=== PATIENT | male | born 1975 | race Caucasian/White ===

== ENCOUNTER 2018-01-15 17:01 | Emergency (ER) | payer OTHER ==
[~2018-01-15] VITALS: Ht 170.2 cm; Wt 90.7 kg
--- NOTE | ~2018-01-15 | EKG ---
[address] [place] [address] ELECTROCARDIOGRAM REPORT Name: ARMOND BUTCHER Room #: DEP Kasey#: [id number] Admission: 01/15/18 Attend Phys: Discharge: 01/15/18 Date of : 71 Report #: [id number] THIS REPORT FOR: //name// [facility] ED Test Date: 2018-01-15 Test Time: 17:09:09 Pat Name: ARMOND BUTCHER Department: Room: Gender: Inspector Floor: [place] : 1975 Requested By: Denise Camara Order Number: [id number] MD: Bertin Bravo Measurements Intervals [place] Rate: 97 P: 51 MT: 168 QRS: 7 QRSD: 94 T: 22 QT: 347 QTc: 441 Interpretive Statements Sinus rhythm Normal tracing No previous ECG available for comparison Electronically Signed On 01-16-2018 15:29:44 [employer] HEL[employer] by Bertin Bravo [email or web address] <ELECTRONICALLY SIGNED> By: Bertin Bravo MD, [facility] 01/16/18 1529 1709 1709 Bertin Bravo MD, FACC /EPI
[2018-01-15] MEDS ORDERED: REMERON45 M1 PO (17:13)
[2018-01-15] MEDS ORDERED: QUETIAPINE FUM100 MG PO (17:13)
[2018-01-15] MEDS ORDERED: CELEXA40 MG PO (17:13)
[2018-01-15 17:30] LABS: ABSOLUTE NEUTROPHILS 6.1 thou/uL (1.4-8.2); BASOPHILS 1.1 % (0.0-2.0); EOSINOPHILS 1.9 % (0.0-3.0); HEMATOCRIT 46.2 % (42.0-52.0); HEMOGLOBIN 16.1 gm/dL (14.0-18.0); LYMPHOCYTES 28.2 % (24.0-44.0); MCH 31.4 pg (26.0-34.0); MCHC 34.8 g/dL (28.0-37.0); MCV 90.4 fL (80.0-100.0); MONOCYTES 6.2 % (1.0-8.0); PLATELET COUNT 249 thou/uL (150-400); POLYS 62.6 % (36.0-66.0); RBC 5.12 mil/uL (4.50-6.00); RDW 13.4 % (10.5-14.5); WBC 9.8 thou/uL (4.0-11.0)
[2018-01-15 17:39] LABS: ANION GAP 8 mmol/L (7-16); BUN 21 mg/dL (7-18); CALCIUM 9.4 mg/dL (8.5-10.1); CHLORIDE 104 mmol/L (98-107); CO2 25 mmol/L (21-32); CREATININE 0.9 mg/dL (0.7-1.3); GLUCOSE 121 mg/dL (74-106); POTASSIUM 4.4 mmol/L (3.5-5.1); SODIUM 137 mmol/L (136-145)
[2018-01-15 17:48] LABS: TROPONIN-I < 0.04 ng/mL (<0.06)
[2018-01-15] MEDS ORDERED: ZPAK PO (18:00)
[2018-01-15] MEDS ORDERED: NAPROSYN500 MG PO (18:00)
== END 2018-01-15 18:18 | disposition home or self-care (01) ==
LOC: ER 17:01
PROVIDERS: Emergency Medicine
DX: J06.9 Acute upper respiratory infection, unspecified (principal); R07.9 Chest pain, unspecified; F17.210 Nicotine dependence, cigarettes, uncomplicated